=== PATIENT | female | born 1985 | race Hispanic/Latino ===

== ENCOUNTER 2017-02-04 20:31 | Emergency (ER) | payer BC ==
[2017-02-04 20:40] VITALS: BP 126/69; PULSE 98; RESP 18; TEMP 98.5; O2SAT 99
--- NOTE | 2017-02-04 21:25 | ED PDOC ---
HPI: Head Injury Time Seen by Provider: 02/04/17 21:07 Chief Complaint (Nursing): Trauma Chief Complaint (Provider): Trauma History Per: Patient History/Exam Limitations: no limitations Onset/Duration Of Symptoms: Mins (prior to arrival) Additional Complaint(s): Екатерина Sandoval is a 31 year old female who presents to the emergency department for an evaluation of a left cheek laceration associated with pain status post injury sustained during soccer game prior to arrival. Denied nausea , vomiting, headache or visual changes. PMD: none provided Past Medical History Reviewed: Historical Data, Nursing Documentation, Vital Signs Vital Signs: Last Vital Signs Temp 98.5 F 02/04/17 20:37 Pulse 98 H 02/04/17 20:37 Resp 18 02/04/17 20:37 BP 126/69 02/04/17 20:37 Pulse Ox 99 02/04/17 20:37 - Family History Family History: States: Unknown Family Hx - Social History Current smoker - smoking cessation education provided: No Alcohol: Occasional Drugs: Denies - Allergies Allergies/Adverse Reactions: Allergies Allergy/AdvReac Type Severity Reaction Status Date / Time grewal Allergy RASH Verified 02/04/17 20:41 methylprednisolone Allergy NAUSEA Verified 02/04/17 20:37 [From Medrol] pineapple Allergy RASH Verified 02/04/17 20:41 acetaminophen [From Percocet] AdvReac VOMITING Verified 02/04/17 20:37 oxycodone [From Percocet] AdvReac VOMITING Verified 02/04/17 20:37 Review of Systems ROS Statement: Except As Marked, All Systems Reviewed And Found Negative Eyes: Negative for: Vision Change Gastrointestinal: Negative for: Nausea, Vomiting Skin: Positive for: Other (left cheek laceration associated with pain) Neurological: Negative for: Headache Physical Exam - Reviewed Nursing Documentation Reviewed: Yes Vital Signs Reviewed: Yes - Physical Exam Appears: Positive for: Well, Non-toxic, No Acute Distress Head Exam: Positive for: NORMOCEPHALIC. Negative for: NORMAL INSPECTION Skin: Positive for: Normal Color (with 1.0cm superficial laceration to left cheek). Negative for: Rash (or active bleeding) Respiratory: Positive for: Normal Breath Sounds. Negative for: Respiratory Distress Neurologic/Psych: Positive for: Alert, Oriented - ECG O2 Sat by Pulse Oximetry: 99 (RA) Pulse Ox Interpretation: Normal Medical Decision Making Medical Decision Making: Initial Impression: Left cheek laceration Initial Plan: * Wound closure with Steri-Strips Scribe Attestation: Documented by Ana Muhammad, acting as a scribe for Laura Olvera PA-C. Provider Scribe Attestation: All medical record entries made by the Scribe were at my direction and personally dictated by me. I have reviewed the chart and agree that the record accurately reflects my personal performance of the history, physical exam, medical decision making, and the department course for this patient. I have also personally directed, reviewed, and agree with the discharge instructions and disposition. Disposition - Clinical Impression Clinical Impression: Head injury, Facial laceration - Patient ED Disposition Is Patient to be Admitted: No Counseled Patient/Family Regarding: Diagnosis, Need For Followup - Disposition Disposition: Routine/Home Disposition Time: 21:55 Condition: GOOD Additional Instructions: Do not get wet for 72 hours. Do not pull off strip, trim them. Vitamin E at night to prompt healing and decrease scarring. Facial lotion with SPF for 1-2 years. Instructions: Steristrips (ED) Forms: [employer] (Guyanese)
== END 2017-02-04 22:09 | disposition home or self-care (01) ==
LOC: H.ER 20:31
DX: S01.81XA Laceration without foreign body of other part of head, initial encounter (principal); W22.8XXA Striking against or struck by other objects, initial encounter; Y92.322 Soccer field as the place of occurrence of the external cause